=== PATIENT | male | born 1975 | race African-American/Black ===

== ENCOUNTER 2019-08-04 07:17 | Emergency (ER) | payer SELFPAY ==
[2019-08-04] MEDS ORDERED: Sodium Chloride 0.9% 10 ML Syringe FLUSH PRN (07:50)
[2019-08-04] MEDS ORDERED: Furosemide 40 MG/4 ML VIAL IVPUSH ONE (07:51)
--- NOTE | 2019-08-04 08:11 | EDM.PDOC ---
ED HPI GENERAL MEDICAL PROBLEM - General Chief Complaint: Genitourinary Problem Stated Complaint: SWOLLEN SCROTUM Time Seen by Provider: 08/04/19 07:30 Source of Information: Reports: Patient History Limitations: Reports: No Limitations - History of Present Illness INITIAL COMMENTS - FREE TEXT/NARRATIVE: The patient presents with scrotal swelling. He first noticed this yesterday and today is much worse. He also has been having shortness of breath for a couple of weeks with easy tasks. He also has been noticing swelling in his legs for a couple of months. He works as a dedicated local truck driver and when he stops for the night he has to put his legs up and the swelling is better. He has lots of swelling in his legs today. He also feels like his abdomen is swollen. He has sleep apnea and he was on CPAP but he was told he could stop a few months ago because he did loose some weight. He gained the weight back again and over the past few months. His mother recently and he has been eating more. He has no history of hypertension. He does not smoke. He has no chest pain. He has no fever, chills, abdominal pain or vomiting. He does have a cough for the past couple of weeks and some nausea at times. Onset: Gradual Duration: Day(s): Location: Reports: Other (scrotum) Severity: Severe Improves with: Reports: None Worsens with: Reports: None Associated Symptoms: Reports: Cough, Shortness of Breath. Denies: Chest Pain, Fever/Chills, Headaches, Nausea/Vomiting Scrotum Pain Score (Numeric/FACES): 3 - Related Data Allergies Allergy/AdvReac Type Severity Reaction Status Date / Time No Known Allergies Allergy Verified 08/04/19 07:27 Home Meds: Home Meds . [No Known Home Meds] 08/04/19 [History] Social & Family History - Tobacco Use Smoking Status *Q: Never Smoker - Caffeine Use Caffeine Use: Reports: None - Recreational Drug Use Recreational Drug Use: No ED ROS GENERAL - Review of Systems Review Of Systems: See Below Constitutional: Reports: No Symptoms HEENT: Reports: No Symptoms Respiratory: Reports: Shortness of Breath, Cough Cardiovascular: Reports: Edema. Denies: Chest Pain Endocrine: Reports: No Symptoms GI/Abdominal: Reports: Nausea. Denies: Abdominal Pain, Vomiting : Reports: Other (Scrotal swelling) Musculoskeletal: Reports: Other (Swelling in his legs) ED EXAM, GI/ABD - Physical Exam Exam: See Below Exam Limited By: No Limitations General Appearance: Alert, No Apparent Distress Ears: Normal External Exam Nose: Normal Inspection Head: Atraumatic, Normocephalic Neck: Normal Inspection Respiratory/Chest: No Respiratory Distress, Lungs Clear, Normal Breath Sounds Cardiovascular: Regular Rate, Rhythm, Systolic Murmur, Other (Edema in his legs , scrotum and abdomen) GI/Abdominal Exam: Non-Tender, No Organomegaly, Other (Distention of his abdomen ) (Male) Exam: Other (Severe swelling of his scrotum) Extremities: Other (Moderate edema to both legs) Neurological: Alert, Oriented, No Motor/Sensory Deficits EKG INTERPRETATION EKG Date: 08/04/19 Time: 07:40 Rhythm: Other (Sinus tachycardia) Rate (Beats/Min): 103 [place]: LAD-Left [place] Deviation P-Wave: Present QRS: Normal ST-T: Other (Flattened T waves in the inferior leads) QT: Prolonged Course - Vital Signs Last Recorded V/S: Last Vital Signs Temp 99.1 F 08/04/19 07:23 Pulse 116 H 08/04/19 07:23 Resp 22 H 08/04/19 07:23 BP 160/117 H 08/04/19 07:23 Pulse Ox 97 08/04/19 07:23 - Orders/Labs/Meds Orders: Active Orders 24 hr Category Date Time Status Cardiac Monitoring [RC] . DIRECTED Care 08/04/19 07:51 Active EKG Documentation Completion [RC] STAT Care 08/04/19 07:40 Active Peripheral IV Care [RC] . DIRECTED Care 08/04/19 07:51 Active Chest 2V [CR] Stat Exams 08/04/19 07:51 Taken Sodium Chloride 0.9% [Saline Flush] Med 08/04/19 07:50 Active 10 ml FLUSH ASDIRECTED PRN Peripheral IV Insertion Adult [OM.PC] Stat Oth 08/04/19 07:50 Ordered Medication Orders Sodium Chloride (Saline Flush) 10 ml FLUSH ASDIRECTED PRN PRN Reason: Keep Vein Open Last Admin: 08/04/19 08:15 Dose: 10 ml Labs: Laboratory Tests 11/04/19 11/04/19 11/04/19 Range/Units 08:10 08:10 08:10 WBC 6.60 (4.23-9.07) K/mm3 RBC 4.47 L (4.63-6.08) M/mm3 Hgb 12.7 L (13.7-17.5) gm/dl Hct 38.3 L (40.1-51.0) % MCV 85.7 (79.0-92.2) fl MCH 28.4 (25.7-32.2) pg MCHC 33.2 (32.2-35.5) g/dl RDW Std Deviation 46.1 H (35.1-43.9) fL Plt Count 267 (163-337) K/mm3 MPV 9.1 L (9.4-12.3) fl Neut % (Auto) 67.4 (34.0-67.9) % Lymph % (Auto) 22.0 (21.8-53.1) % [place] % (Auto) 9.1 (5.3-12.2) % Eos % (Auto) 0.8 (0.8-7.0) Baso % (Auto) 0.5 (0.1-1.2) % Neut # (Auto) 4.46 (1.78-5.38) K/mm3 Lymph # (Auto) 1.45 (1.32-3.57) K/mm3 [place] # (Auto) 0.60 (0.30-0.82) K/mm3 Eos # (Auto) 0.05 (0.04-0.54) K/mm3 Baso # (Auto) 0.03 (0.01-0.08) K/mm3 Sodium 141 (136-145) mEq/L Potassium 2.8 L (3.5-5.1) mEq/L Chloride 103 (98-107) mEq/L Carbon Dioxide 27 (21-32) mEq/L Anion Gap 13.8 (5-15) BUN 31 H (7-18) mg/dL Creatinine 2.8 H (0.7-1.3) mg/dL Est Cr Clr Drug Dosing 37.72 mL/min Estimated GFR (MDRD) 30 (>60) mL/min BUN/Creatinine Ratio 11.1 L (14-18) Glucose 149 H (74-106) mg/dL Calcium 9.0 (8.5-10.1) mg/dL Total Bilirubin 1.7 H (0.2-1.0) mg/dL AST 18 (15-37) U/L ALT 27 (16-63) U/L Alkaline Phosphatase 91 (46-116) U/L Troponin I 0.076 H* (0.00-0.056) ng/mL NT-Pro-B Natriuret Pep 31976 H (0-125) pg/mL Total Protein 6.9 (6.4-8.2) g/dl Albumin 3.0 L (3.4-5.0) g/dl Globulin 3.9 gm/dL Albumin/Globulin Ratio 0.8 L (1-2) Meds: Medications Generic Name Dose Route Start Last Admin Trade Name Freq PRN Reason Stop Dose Admin Sodium Chloride 10 ml 08/04/19 07:50 08/04/19 08:15 Saline Flush FLUSH 10 ml ASDIRECTED PRN Administration Keep Vein Open Discontinued Medications Generic Name Dose Route Start Last Admin Trade Name Freq PRN Reason Stop Dose Admin Furosemide 40 mg 08/04/19 07:51 08/04/19 08:14 Lasix IVPUSH 08/04/19 07:52 40 mg NOW ONE Administration Potassium Chloride 40 meq 08/04/19 10:09 Klor-Con M20 PO 08/04/19 10:10 ONETIME ONE - Re-Assessments/Exams Free Text/Narrative Re-Assessment/Exam: 08/04/19 08:16 I ordered an IV saline lock, lasix 40mg IV, labs, EKG, and CXR. I feel he has edema from a cardiac issue and possibly from sleep apnea. 08/04/19 10:17 His EKG shows a NSR with no acute changes. His CXR shows some fluid in a fissure in the right lung. His Hgb was 12.7. His K was low at 2.8. I gave him 40meq of potassium. His creatinine was elevated at 2.8. His GFR is 30. His glucose is 149. His total bili is 1.7. His troponin is elevated at 0.076. His BNP is elevated at 13.436. He is urinating. I called my hospitalist and she has no more beds. I then called [facility] in [place] and talked to the hospitalist Dr Aldridge and she accepted the patient. 08/04/19 10:26 Departure - Departure Time of Disposition: 10:30 Disposition: DC/Tfer to Acute Hospital 02 Condition: Serious Clinical Impression: Heart murmur, Hypokalemia, Renal insufficiency, Elevated troponin CHF (congestive heart failure) Qualifiers: Heart failure type: right-sided Heart failure chronicity: acute Qualified Code( s): I50.811 - Acute right heart failure - Discharge Information Referrals: PCP,Not In Area [Primary Care Provider] - Forms: ED Department Discharge - My Orders Last 24 Hours: My Active Orders 08/04/19 07:40 EKG Documentation Completion [RC] STAT 08/04/19 07:50 Sodium Chloride 0.9% [Saline Flush] 10 ml FLUSH ASDIRECTED PRN Peripheral IV Insertion Adult [OM.PC] Stat 08/04/19 07:51 Cardiac Monitoring [RC] . DIRECTED Peripheral IV Care [RC] . DIRECTED Chest 2V [CR] Stat - Assessment/Plan Last 24 Hours: My Active Orders 08/04/19 07:40 EKG Documentation Completion [RC] STAT 08/04/19 07:50 Sodium Chloride 0.9% [Saline Flush] 10 ml FLUSH ASDIRECTED PRN Peripheral IV Insertion Adult [OM.PC] Stat 08/04/19 07:51 Cardiac Monitoring [RC] . DIRECTED Peripheral IV Care [RC] . DIRECTED Chest 2V [CR] Stat
[2019-08-04] MEDS ORDERED: Potassium Chloride 20 MEQ Tab.ER PO ONE (10:09)
--- NOTE | 2019-08-04 10:22 | CR ---
Chest: Two views of the chest were obtained. Comparison: No prior chest x-ray. Heart size and mediastinum are normal. Thick linear density is seen within the right middle lobe. Lungs otherwise are clear. Bony structures appear within normal limits for the patient's age. Impression: 1. Thick area of atelectasis within the right middle lobe. 2. Nothing acute is otherwise seen. Diagnostic code #2
== END 2019-08-04 11:27 ==
LOC: JD.ED 07:17
DX: I50.811 Acute right heart failure (principal); R01.1 Cardiac murmur, unspecified; E87.6 Hypokalemia; R79.89 Other specified abnormal findings of blood chemistry; N28.9 Disorder of kidney and ureter, unspecified; G47.30 Sleep apnea, unspecified
CPT/HCPCS: 36415; 71046; 80053; 83880; 84484; 85025; 93005; 96374; 99285; A9270; J1940; 93010; 99284